=== PATIENT | female | born 1945 | race Hispanic/Latino ===

== ENCOUNTER → 2023-01-09 | Outpatient (CLI) | payer OTHER | END | disposition home or self-care (01) | LOC: RAH 16:15 | PROVIDERS: ATTEND Internal Medicine | DX: J90 Pleural effusion, not elsewhere classified (principal); J98.11 Atelectasis; I51.7 Cardiomegaly; R06.09 Other forms of dyspnea; M79.89 Other specified soft tissue disorders | CPT/HCPCS: 71046; 93925; 93970 ==

== ENCOUNTER → 2023-01-19 | Outpatient (CLI) | payer OTHER | END | disposition home or self-care (01) | LOC: RAH 13:41 | PROVIDERS: ATTEND Internal Medicine | DX: G31.9 Degenerative disease of nervous system, unspecified (principal); R90.82 White matter disease, unspecified; Z91.81 History of falling; Z79.01 Long term (current) use of anticoagulants | CPT/HCPCS: 70450 ==